=== PATIENT | female | born 1965 | race Caucasian/White ===

== ENCOUNTER 2020-07-05 13:40 | Emergency (ER) | payer OTHER ==
--- NOTE | 2020-07-05 15:45 | EDM.PDOC ---
ED HPI GENERAL MEDICAL PROBLEM - General Chief Complaint: General Stated Complaint: FLU ? ACHE TIREDOUT Time Seen by Provider: 07/05/20 15:45 Source of Information: Reports: Patient, Family History Limitations: Reports: No Limitations - History of Present Illness INITIAL COMMENTS - FREE TEXT/NARRATIVE: on pt got a pneumonia shot and a shingles shot. she is now having very sore arms particularly the left. There is no redness but there is induration around the site of the shot. This indurated area is firm feeling. Onset: Other ( started Tuesday. ) Duration: Hour(s): Location: Reports: Upper Extremity, Left, Upper Extremity, Right Associated Symptoms: Reports: No Other Symptoms - Related Data Allergies Allergy/AdvReac Type Severity Reaction Status Date / Time phentermine Allergy Hallucinati Verified 07/05/20 14:59 ons Sulfa (Sulfonamide Allergy Rash Verified 07/05/20 14:58 Antibiotics) Home Meds: Home Meds Aspirin 1 tab PO DAILY 07/05/20 [History] Diethylpropion HCl [Diethylpropion] 1 tab PO DAILY 07/05/20 [History] Losartan [Cozaar] 1 tab PO DAILY 07/05/20 [History] Montelukast Sodium 1 tab PO DAILY 07/05/20 [History] Rosuvastatin [Crestor] 1 tab PO DAILY 07/05/20 [History] Topiramate [Topamax] 1 tab PO BID 07/05/20 [History] metFORMIN [Glucophage] 0.5 tab PO BID 07/05/20 [History] Past Medical History Cardiovascular History: Reports: High Cholesterol, Hypertension - Past Surgical History Female Surgical History: Reports: Hysterectomy Musculoskeletal Surgical History: Reports: Hip Replacement Social & Family History - Tobacco Use Tobacco Use Status *Q: Never Tobacco User ED ROS GENERAL - Review of Systems Review Of Systems: See Below Constitutional: Reports: Chills, Other ( body aches. ) HEENT: Reports: No Symptoms Respiratory: Reports: No Symptoms Cardiovascular: Reports: No Symptoms Endocrine: Reports: No Symptoms GI/Abdominal: Reports: No Symptoms : Reports: No Symptoms Musculoskeletal: Reports: Muscle Pain, Muscle Stiffness Skin: Reports: No Symptoms Neurological: Reports: No Symptoms Psychiatric: Reports: No Symptoms ED EXAM, GENERAL - Physical Exam Exam: See Below Free Text/Narrative:: pt arrived with body aches and feels like she is having a reaction to the shots. Her wbc is 11,000 and does not have the picture of the contreras virus. Exam Limited By: No Limitations General Appearance: Alert, Anxious, Mild Distress Ears: Normal TMs Ear Exam: Right Ear: Discharge Nose: Normal Inspection Throat/Mouth: Normal Inspection Head: Atraumatic Neck: Normal Inspection Respiratory/Chest: No Respiratory Distress Cardiovascular: Regular Rate, Rhythm GI/Abdominal: Soft, Non-Tender (Female) Exam: Deferred Extremities: Other ( definite firmness and induration around the shot sites. ) Neurological: Alert, Oriented, Normal Cognition Psychiatric: Normal Affect Course - Vital Signs Last Recorded V/S: Last Vital Signs Temp 36.8 C 07/05/20 15:12 Pulse 107 H 07/05/20 15:12 Resp 20 07/05/20 15:12 BP 151/68 H 07/05/20 15:12 Pulse Ox 97 07/05/20 15:12 - Orders/Labs/Meds Labs: Laboratory Tests 07/05/20 Range/Units 15:16 WBC 11.3 H (4.5-11.0) K/uL RBC 4.78 (3.30-5.50) M/uL Hgb 13.4 (12.0-15.0) g/dL Hct 42.3 (36.0-48.0) % MCV 89 (80-98) fL MCH 28 (27-31) pg MCHC 32 (32-36) % Plt Count 297 (150-400) K/uL Neut % (Auto) 73 H (36-66) % Lymph % (Auto) 10 L (24-44) % Talbot % (Auto) 13 H (2-6) % Eos % (Auto) 3 (2-4) % Baso % (Auto) 0 (0-1) % - Re-Assessments/Exams Free Text/Narrative Re-Assessment/Exam: 07/05/20 15:56 wbc is not unusual. Departure - Departure Time of Disposition: 15:43 Disposition: Home, Self-Care 01 Condition: Fair Clinical Impression: Adverse reaction to vaccine - Discharge Information Referrals: PCP,None [Primary Care Provider] - Forms: ED Department Discharge Care Plan Goals: tylenol and motrin, moist warm packs to the shot sites followed by a cool pack. tub soak, if not better by tuesday further follow up Sepsis Event Note (ED) - Evaluation Sepsis Screening Result: No Definite Risk - Focused Exam Vital Signs: Vital Signs Temp Pulse Resp BP Pulse Ox 07/05/20 15:12 36.8 C 107 H 20 151/68 H 97 07/05/20 14:40 36.8 C 107 H 20 151/68 H 97
== END 2020-07-05 15:51 | disposition home or self-care (01) ==
LOC: JP.ED 13:40
DX: M79.601 Pain in right arm (principal); M79.602 Pain in left arm; T50.Z95A Adverse effect of other vaccines and biological substances, initial encounter; I10 Essential (primary) hypertension; E78.00 Pure hypercholesterolemia, unspecified; Z90.710 Acquired absence of both cervix and uterus; Z88.2 Allergy status to sulfonamides; Z88.8 Allergy status to other drugs, medicaments and biological substances; Z79.82 Long term (current) use of aspirin; Z79.899 Other long term (current) drug therapy
CPT/HCPCS: 36415; 85025; 99284

== ENCOUNTER 2022-01-09 12:20 | Emergency (ER) | payer BC, OTHER ==
[2022-01-09] MEDS ORDERED: Ketorolac 30 MG/ML SDV IVPUSH ONE (12:36)
== END 2022-01-09 15:22 | disposition home or self-care (01) ==
LOC: JP.ED 12:20
DX: N20.2 Calculus of kidney with calculus of ureter (principal); N39.0 Urinary tract infection, site not specified; E78.00 Pure hypercholesterolemia, unspecified; I10 Essential (primary) hypertension; Z90.710 Acquired absence of both cervix and uterus; Z88.8 Allergy status to other drugs, medicaments and biological substances; Z88.2 Allergy status to sulfonamides; Z79.82 Long term (current) use of aspirin; Z79.899 Other long term (current) drug therapy; Z79.84 Long term (current) use of oral hypoglycemic drugs
CPT/HCPCS: 74176; 81001; 87086; 87088; 87186; 96374; 99282; 99284-25; J1885

== ENCOUNTER 2023-09-09 08:56 | Day surgery (SDC) | payer BC ==
[~2023-09-09 08:56] MED LIST: Lactated Ringers 1,000 ML IV SCH
[2023-09-09] MEDS ORDERED: Propofol 200 MG/20 ML SDV ONE (11:54)
[2023-09-09] MEDS ORDERED: Midazolam 1 MG/ML 2 ML SDV ONE (11:54)
[2023-09-09] MEDS ORDERED: fentaNYL 50 MCG/ML SDV ONE (11:54)
== END 2023-09-09 13:38 | disposition home or self-care (01) ==
LOC: JP.SDS 08:56
PROVIDERS: ATTEND Student in an Organized Health Care Education/Training Program
DX: Z12.11 Encounter for screening for malignant neoplasm of colon (principal)
CPT/HCPCS: J2250; J2704; J3010; J7120

== ENCOUNTER 2024-09-28 09:35 | Day surgery (SDC) | payer BC ==
[2024-09-28] MEDS: Lactated Ringers 1,000 ML IV SCH (10:24)
[2024-09-28] MEDS ORDERED: fentaNYL 50 MCG/ML SDV ONE (10:36)
[2024-09-28] MEDS ORDERED: Midazolam 1 MG/ML 2 ML SDV ONE (10:36)
[2024-09-28] MEDS ORDERED: Propofol 200 MG/20 ML SDV ONE ×2 (10:36→11:03)
== END 2024-09-28 12:45 | disposition home or self-care (01) ==
LOC: JP.SDS 09:35
PROVIDERS: ATTEND Surgery
DX: Z12.11 Encounter for screening for malignant neoplasm of colon (principal); K62.1 Rectal polyp; K57.30 Diverticulosis of large intestine without perforation or abscess without bleeding; Z80.0 Family history of malignant neoplasm of digestive organs; J45.909 Unspecified asthma, uncomplicated; I10 Essential (primary) hypertension
CPT/HCPCS: 00811-QZ; J2250; J2704; J3010; J7120